=== PATIENT | female | born 1935 | race Caucasian/White ===

== ENCOUNTER 2018-12-29 10:51 | Emergency (ER) | payer OTHER ==
[~2018-12-29] VITALS: Ht 160 cm; Wt 61.2 kg
[~2018-12-29 10:51] MED LIST: MEDROLPACK PO; TOPROL XL50 M1; TRICOR145 MG; ZOCOR20 MG; ZYRTEC10 MG PO
== END 2018-12-29 13:57 | disposition home or self-care (01) ==
LOC: ER 10:51
DX: H53.2 Diplopia (principal); R42 Dizziness and giddiness